=== PATIENT | male | born 1970 | race Caucasian/White ===

== ENCOUNTER 2018-04-12 08:29 | Emergency (ER) | payer SELFPAY ==
[~2018-04-12] VITALS: Ht 167.6 cm; Wt 97.3 kg
[2018-04-12] MEDS ORDERED: DEXAMETHASONE 10 MG/ML VIAL IM ONE (09:30)
[2018-04-12] MEDS ORDERED: DIAZEPAM 2 MG TABLET PO ONE (09:30)
[2018-04-12] MEDS ORDERED: KETOROLAC 60MG/2ML VIAL IM ONE (09:30)
[2018-04-12 09:37] VITALS: BP 155/94
== END 2018-04-12 10:08 | disposition home or self-care (01) ==
LOC: ER 08:29
DX: M54.89 Other dorsalgia (principal)
CPT/HCPCS: 96372; 99283; J1100; J1885

== ENCOUNTER 2022-05-19 13:43 | Emergency (ER) | payer MEDICAID ==
[~2022-05-19] VITALS: Ht 162.6 cm; Wt 94.0 kg
[2022-05-19 14:00] VITALS: BP 153/108
[2022-05-19 16:02] LABS: BASOPHILS % 0.7 % (0.0-2.0); EOSINOPHILS % 3.4 % (0.0-5.0); HEMATOCRIT. 44.5 % (42.0-52.0); HEMOGLOBIN. 15.7 g/dL (14.0-18.0); LYMPHOCYTES % 22.3 % (20.0-50.0); MEAN CORPUSCULAR VOLUME 90.6 fL (80.0-94.0); MEAN PLATELET VOLUME 7.6 fl (7.4-10.4); MONOCYTES % 5.8 % (2.0-8.0); NEUTROPHILS % 67.8 % (40.0-76.0); PLATELET 298 x1000/uL (130-400); RED BLOOD CELL COUNT 4.92 mill/uL (4.7-6.1)
[2022-05-19 16:20] LABS: CHLORIDE 106 mEq/L (98-107)
[2022-05-19] MEDS ORDERED: MECL-217 PO (16:29)
== END 2022-05-19 17:17 | disposition home or self-care (01) ==
LOC: ER 13:50
DX: R42 Dizziness and giddiness (principal); I10 Essential (primary) hypertension
CPT/HCPCS: 36415; 80048; 82962; 85025; 99283